=== PATIENT | female | born 1990 | race African-American/Black ===

== ENCOUNTER 2021-10-17 08:30 | Emergency (ER) | payer MEDICAID ==
[~2021-10-17] VITALS: Ht 175.3 cm; Wt 90.0 kg
[2021-10-17] MEDS ORDERED: SODIUM CHLORIDE 0.9% 1,000 ML IV ONE ×2 (09:00)
[2021-10-17 09:11] LABS: BASOPHILS % 0.7 % (0.0-2.0); EOSINOPHILS % 5.6 % (0.0-5.0); HEMATOCRIT. 34.5 % (36.0-48.0); HEMOGLOBIN. 11.2 g/dL (12.0-16.0); LYMPHOCYTES % 22.3 % (20.0-50.0); MEAN CORPUSCULAR HEMOGLOBIN 26.7 pg (28.0-32.0); MEAN CORPUSCULAR VOLUME 82.4 fL (81.0-99.0); MEAN PLATELET VOLUME 8.5 fl (7.4-10.4); MONOCYTES % 11.6 % (2.0-8.0); NEUTROPHILS % 59.8 % (40.0-76.0); PLATELET 299 x1000/uL (130-400); RED BLOOD CELL COUNT 4.19 mill/uL (4.2-5.4); RED CELL DISTRIBUTION WIDTH 14.6 % (11.6-14.6)
[2021-10-17 09:18] LABS: CHLORIDE 111 mEq/L (98-107)
[2021-10-17 09:21] LABS: PROTHROMBIN TIME 10.3 sec (9.6-11.0)
[2021-10-17 09:28] LABS: B-HCG QUANTITATIVE < 1 mIU/mL (<3)
[2021-10-17] MEDS ORDERED: ONDANSETRON HCL 4MG/2ML INJ IV ONE (11:15)
[2021-10-17] MEDS ORDERED: MORPHINE SULFATE 4 MG/ML CPJ (NOT FOR IM USE) IV ONE (11:15)
[2021-10-17 12:10] LABS: HCG SCREEN NEGATIVE
[2021-10-17] MEDS ORDERED: MORPHINE SULFATE 4 MG/ML CPJ (NOT FOR IM USE) IV NR (14:45)
[2021-10-17 16:00] VITALS: BP 124/76
== END 2021-10-17 17:31 | disposition home or self-care (01) ==
LOC: ER 08:41 → CANBEDREQ 22:35
DX: O26.891 Other specified pregnancy related conditions, first trimester (principal); R10.9 Unspecified abdominal pain; Z3A.01 Less than 8 weeks gestation of pregnancy
CPT/HCPCS: 36415; 74176; 76830; 76856; 80053; 84702; 84703; 85025; 85610; 86850; 86870; 86900; 86901; 96361; 96374; 96375; 96376; 99285; J2270; J2405; J7030